=== PATIENT | female | born 1990 | race Caucasian/White ===

== ENCOUNTER → 2017-07-21 12:19 | Outpatient (CLI) | payer MEDICAID, SELFPAY ==
[2017-07-25 16:57] LABS: HPV Reflexed? NOT INDICATED
== END ==
PROVIDERS: Visit Provider Obstetrics & Gynecology
DX: Z12.4 Encounter for screening for malignant neoplasm of cervix (principal)
CPT/HCPCS: 88175; G0145

== ENCOUNTER → 2022-02-08 | Outpatient (CLI) | payer MEDICAID, SELFPAY ==
[2022-02-14 13:21] LABS: HPV APTIMA, High Risk Negative (Negative)
== END | disposition home or self-care (01) ==
LOC: LABSPEC 12:11
PROVIDERS: PCP Family Medicine; Visit Provider Student in an Organized Health Care Education/Training Program
DX: Z12.4 Encounter for screening for malignant neoplasm of cervix (principal)
CPT/HCPCS: 87624; 88175; G0145

== ENCOUNTER → 2022-02-16 | Outpatient (CLI) | payer MEDICAID, SELFPAY ==
--- NOTE | 2022-02-16 14:15 | VUL_PTH ---
PATIENT: SAUMYA FANG LOC: [facility] U#:[id number] AGE/SX: 32/F ROOM: RE02/16/[address]: Dr. Kelsi Anderson DO : 1990 BED: DIS: 02/16/2022 SPEC #: [id number] RECD: 02/17/22 09:27 STATUS: KATERINE ALENA #: [id number] STEVEN: 02/16/22 14:[address]: Kelsi Anderson DEPT: SURGICAL PATHOLOGY RECD BY: Ana Lemus ENTERED: 02/17/22 10:01 SP TYPE: VULVA BX OTHR DR: Dr. Dhaval Ariza MD Tissues: Vulva, NOS Procedures: Surgery Specimen Level IV HEADER OPERATION: Vulvar biopsy PRE-OP DIAGNOSIS: Vulvar lesion TISSUE SUBMITTED: Vulvar lesion MICROSCOPIC DIAGNOSIS Vulvar lesion, biopsy: Consistent with condyloma. SJ:catalina 02/19/2022 MICROSCOPIC DESCRIPTION Slides are reviewed. GROSS DESCRIPTION Received in fixative is one container labeled with the patient's name and designated vulvar biopsy. The specimen consists of a polypoid piece of [place]-white skin measuring 1 x 0.5 x 0.2 cm. The specimen is inked, bisected and submitted entirely in one cassette. / SJ:rg 02/17/2022 TC:5 CPT: 49778
== END | disposition home or self-care (01) ==
LOC: LABSPEC 02-17 09:12
PROVIDERS: PCP Family Medicine; Visit Provider Student in an Organized Health Care Education/Training Program
DX: N90.89 Other specified noninflammatory disorders of vulva and perineum (principal)
CPT/HCPCS: 88305